=== PATIENT | female | born 1980 | race Caucasian/White ===

== ENCOUNTER → 2016-06-29 | Outpatient (REF) | payer OTHER ==
[2016-06-29 13:01] LABS: MEAN CORPUSCULAR HEMOGLOBIN 31.6 pg (27.0-33.0); MEAN CORPUSCULAR HGB CONC 33.4 g/dl (32.0-36.5); MEAN CORPUSCULAR VOLUME 94.5 fl (80.0-96.0); RED CELL DISTRIBUTION WIDTH 12.4 % (11.5-14.5); WHITE BLOOD COUNT 9.2 K/mm3 (4.0-10.0)
[2016-06-29 13:07] LABS: ALBUMIN/GLOBULIN RATIO 1.05 (1.00-1.93); ALKALINE PHOSPHATASE 84 U/L (45-117); ALT/SGPT 33 U/L (12-78); ANION GAP 8 MEQ/L (8-16); AST/SGOT 15 U/L (15-37); BILIRUBIN,TOTAL 0.2 MG/DL (0.2-1.0); BLOOD UREA NITROGEN 14 MG/DL (7-18); CARBON DIOXIDE LEVEL 29 MEQ/L (21-32); CHLORIDE LEVEL 103 MEQ/L (98-107); CREATININE FOR GFR 0.78 MG/DL (0.55-1.02); GLOMERULAR FILTRATION RATE > 60.0 (>60); GLUCOSE, FASTING 102 MG/DL (70-105); POTASSIUM SERUM 4.2 MEQ/L (3.5-5.1); SODIUM LEVEL 140 MEQ/L (136-145); TOTAL PROTEIN 7.8 GM/DL (6.4-8.2)
== END ==
LOC: M SFHCADAM 08:15
PROVIDERS: ATTEND Physician Assistant
DX: K52.9 Noninfective gastroenteritis and colitis, unspecified (principal); K92.1 Melena; R35.0 Frequency of micturition

== ENCOUNTER 2016-07-21 11:33 | Emergency (ER) | payer OTHER ==
[~2016-07-21] VITALS: Ht 154.9 cm; Wt 98.9 kg
[2016-07-21] MEDS ORDERED: BUPR50TA (11:44)
[2016-07-21] MEDS ORDERED: HYDR25TA6 (11:44)
--- NOTE | 2016-07-21 12:36 | REP ---
Clinical: Trauma. Technique: AP, lateral, bilateral oblique views of the left ankle. Findings: Diffuse soft tissue swelling is appreciated. No acute fracture dislocation. Joint spaces and ankle mortise are intact. Impression: Diffuse swelling. No acute fracture or dislocation. Signed by Marco Frazier MD 07/21/2016 12:28 P
[2016-07-21 12:47] VITALS: BP 152/98
[2016-07-21] MEDS ORDERED: NAPR500T PO (12:47)
== END 2016-07-21 12:51 | disposition home or self-care (01) ==
LOC: M ED 12:03
DX: M25.572 Pain in left ankle and joints of left foot (principal); I10 Essential (primary) hypertension; E66.8 Other obesity; Z79.899 Other long term (current) drug therapy; Z88.8 Allergy status to other drugs, medicaments and biological substances; Z91.018 Allergy to other foods

== ENCOUNTER → 2016-08-22 | Outpatient (REF) | payer OTHER ==
[~2016-08-22] MED LIST: BUPR50TA; HYDR25TA6; NAPR500T PO
== END ==
LOC: M LAB REF 12:02
PROVIDERS: ATTEND Physician Assistant Medical
DX: N30.01 Acute cystitis with hematuria (principal)

== ENCOUNTER → 2016-09-05 | Outpatient (REF) | payer OTHER ==
[~2016-09-05] MED LIST changes: +AMOX-CLAV; +CYCL10TA PO; +IBUP-1022 PO; +PRED20TA
== END ==
LOC: M LAB REF 12:10
PROVIDERS: ATTEND Physician Assistant Medical
DX: R30.0 Dysuria (principal)

== ENCOUNTER → 2016-10-23 | Outpatient (REF) | payer OTHER | LOC: M LAB REF 12:13 | PROVIDERS: ATTEND Physician Assistant Medical | DX: N30.01 Acute cystitis with hematuria (principal) ==

== ENCOUNTER 2016-12-17 12:18 | Emergency (ER) | payer OTHER ==
[~2016-12-17] VITALS: Ht 154.9 cm; Wt 98.6 kg
[~2016-12-17 12:18] MED LIST changes: -AMOX-CLAV; -CYCL10TA PO; -IBUP-1022 PO; -PRED20TA
[2016-12-17 12:20] VITALS: BP 152/85
[2016-12-17] MEDS ORDERED: PRED20TA (12:45)
[2016-12-17] MEDS ORDERED: AMOX-CLAV (12:45)
[2016-12-17] MEDS ORDERED: CYCL10TA PO (13:04)
[2016-12-17] MEDS ORDERED: IBUP-1022 PO (13:04)
== END 2016-12-17 13:12 | disposition home or self-care (01) ==
LOC: M ED 12:18
DX: M54.31 Sciatica, right side (principal)

== ENCOUNTER → 2017-10-21 | Outpatient (CLI) | payer OTHER | LOC: M WHC 08:34 | DX: N92.1 Excessive and frequent menstruation with irregular cycle (principal) ==

== ENCOUNTER → 2017-10-21 | Outpatient (REF) | payer OTHER ==
[2017-10-21 13:00] LABS: TOTAL 25(OH) VITAMIN D 35.6 NG/ML (30.0-100.0)
[2017-10-21 13:01] LABS: ALBUMIN 3.9 GM/DL (3.2-5.2); ALBUMIN/GLOBULIN RATIO 0.95 (1.00-1.93); ALKALINE PHOSPHATASE 86 U/L (45-117); ALT/SGPT 34 U/L (12-78); ANION GAP 10 MEQ/L (8-16); AST/SGOT 19 U/L (7-37); BILIRUBIN,TOTAL 0.6 MG/DL (0.2-1.0); BLOOD UREA NITROGEN 14 MG/DL (7-18); CALCIUM LEVEL 9.3 MG/DL (8.5-10.1); CARBON DIOXIDE LEVEL 28 MEQ/L (21-32); CHLORIDE LEVEL 102 MEQ/L (98-107); CREATININE FOR GFR 0.74 MG/DL (0.55-1.30); FREE T4 0.97 NG/DL (0.76-1.46); GLOMERULAR FILTRATION RATE > 60.0 (>60); GLUCOSE, FASTING 94 MG/DL (70-100); SODIUM LEVEL 140 MEQ/L (136-145)
[2017-10-21 13:09] LABS: HEMATOCRIT 38.1 % (36.0-47.0); HEMOGLOBIN 13.2 g/dl (12.0-15.5); MEAN CORPUSCULAR HEMOGLOBIN 30.7 pg (27.0-33.0); MEAN CORPUSCULAR HGB CONC 34.6 g/dl (32.0-36.5); MEAN CORPUSCULAR VOLUME 88.6 fl (80.0-96.0); PLATELET COUNT, AUTOMATED 294 10^3/uL (150-450); RED CELL DISTRIBUTION WIDTH 12.4 % (11.5-14.5); WHITE BLOOD COUNT 6.7 10^3/uL (4.0-10.0)
== END ==
LOC: M SFHCADAM 10:06
DX: I10 Essential (primary) hypertension (principal); N92.1 Excessive and frequent menstruation with irregular cycle; E55.9 Vitamin D deficiency, unspecified
CPT/HCPCS: 84443

== ENCOUNTER 2018-08-17 08:25 | Emergency (ER) | payer OTHER ==
[~2018-08-17] VITALS: Ht 154.9 cm; Wt 96.8 kg
[~2018-08-17 08:25] MED LIST changes: +AMOX-CLAV; +CYCL10TA PO; +IBUP-1022 PO; +NAPR-837 PO; -NAPR500T PO; +PRED20TA
[2018-08-17] MEDS ORDERED: KETOROLAC 30 MG/ML VIAL (J1885) IV ONE (10:15)
[2018-08-17] MEDS ORDERED: diazePAM 5 MG TAB PO ONE (10:15)
[2018-08-17] MEDS ORDERED: KETO10TAB PO (11:05)
[2018-08-17] MEDS ORDERED: CYCL10TA PO (11:06)
[2018-08-17] MEDS ORDERED: VALI5TAB PO (11:06)
[2018-08-17 11:12] VITALS: BP 142/79
--- NOTE | 2018-08-17 13:01 | REP ---
CT LUMBAR SPINE: Axial images of the lumbar spine performed with sagittal reconstruction images. There is no compression fracture. Vertebral bodies are normal in height with normal lumbar lordosis. There is chronic retrolisthesis of L5 on S1, 3 mm, unchanged since prior plain film study 09/15/2015. There is mild spurring of L4 and L5. There is moderate disc space narrowing with subchondral sclerosis and vacuum phenomenon at L5-S1. There is a chronically unfused right transverse process of L1. There are mild degenerative changes at the posterior facets of L2-3. There is a more moderate degree of degenerative change at the posterior facets of L3-4, L4-5 and L5-S1 with more significant spurring and subchondral sclerosis. IMPRESSION: Degenerative changes most significantly at L5-S1 level. No evidence of acute fracture or dislocation. Electronically Signed by Skip Sutton MD 08/17/2018 04:33 P
== END 2018-08-17 11:17 | disposition home or self-care (01) ==
LOC: M ED 08:25
DX: M54.5 Low back pain (principal); W18.40XA Slipping, tripping and stumbling without falling, unspecified, initial encounter; Y92.9 Unspecified place or not applicable; Y93.9 Activity, unspecified; I10 Essential (primary) hypertension; F32.89 Other specified depressive episodes; Z88.8 Allergy status to other drugs, medicaments and biological substances; Z91.018 Allergy to other foods
CPT/HCPCS: 72131; 80047; 81001; 84702; 96374; 99284; J1885

== ENCOUNTER → 2018-12-01 | Outpatient (REF) | payer OTHER ==
[~2018-12-01] MED LIST changes: +CALC600T5 PO; +CLAR10CA3 PO; +CRAN400C PO; +CVS1CAP2 PO; +D200CAP2 PO; +FLUO10CA15 PO; +GABA-843 PO; +HYDR25TAB PO; +KETO10TAB PO; +MULT1TAB42 PO; +POTA2TAB2 PO; +VALI5TAB PO
[2018-12-01 19:20] LABS: BASO # 0.1 10^3/uL (0.0-0.2); EOS # 0.3 10^3/uL (0.0-0.5); EOS % 2.4 % (0.0-3.0); HEMATOCRIT 41.4 % (36.0-47.0); HEMOGLOBIN 13.6 g/dl (12.0-15.5); LYMPH # 2.9 10^3/uL (1.5-5.0); LYMPH % 25.6 % (24.0-44.0); MEAN CORPUSCULAR HEMOGLOBIN 31.6 pg (27.0-33.0); MEAN CORPUSCULAR HGB CONC 32.9 g/dl (32.0-36.5); MEAN CORPUSCULAR VOLUME 96.1 fl (80.0-96.0); MONO # 0.7 10^3/uL (0.0-0.8); MONO % 6.6 % (0.0-5.0); NEUTROPHILS # 7.1 10^3/uL (1.5-8.5); PLATELET COUNT, AUTOMATED 320 10^3/uL (150-450); RED BLOOD COUNT 4.31 10^6/uL (4.00-5.40); WHITE BLOOD COUNT 11.2 10^3/uL (4.0-10.0)
[2018-12-01 19:31] LABS: ALBUMIN 3.9 GM/DL (3.2-5.2); ALT/SGPT 27 U/L (12-78); BILIRUBIN,TOTAL 0.3 MG/DL (0.2-1.0); BLOOD UREA NITROGEN 14 MG/DL (7-18); CALCIUM LEVEL 9.5 MG/DL (8.5-10.1); CARBON DIOXIDE LEVEL 31 MEQ/L (21-32); CHLORIDE LEVEL 103 MEQ/L (98-107); CREATININE FOR GFR 0.88 MG/DL (0.55-1.30); GLOMERULAR FILTRATION RATE > 60.0 (>58); GLUCOSE, FASTING 86 MG/DL (70-100); POTASSIUM SERUM 4.4 MEQ/L (3.5-5.1); SODIUM LEVEL 141 MEQ/L (136-145); TOTAL PROTEIN 8.1 GM/DL (6.4-8.2)
[2018-12-01 19:53] LABS: ERYTHROCYTE SEDIMENTATION RATE 16 mm/hr (0-20)
[2018-12-04 00:09] LABS: ANA (HEP2) Negative (.)
== END ==
LOC: M SFHCADAM 15:22
PROVIDERS: ATTEND Physician Assistant Medical
DX: R22.2 Localized swelling, mass and lump, trunk (principal); R22.42 Localized swelling, mass and lump, left lower limb; R22.41 Localized swelling, mass and lump, right lower limb; R22.43 Localized swelling, mass and lump, lower limb, bilateral

== ENCOUNTER → 2019-01-02 | Outpatient (CLI) | payer OTHER ==
[~2019-01-02] VITALS: Ht 156.2 cm; Wt 93.4 kg
[~2019-01-02] MED LIST changes: +BACITRACIN PWD 50,000 UNITS VIAL As Ordered ONE; +BUPIVACAINE HCL 0.25% 10 ML VIAL As Ordered ONE; +BUPIVACAINE LIPOSOME/PF 1.3% 20ML VIAL (13.3MG/ML)(EXPAREL)(C9290 PER1MG) As Ordered ONE; +BUPIVACAINE/EPIN 0.5% 30 ML VIAL As Ordered ONE; +CelecoXIB 400 MG CAP PO ONE; +EPINEPHrine INJ 1 MG/ML 1ML AMP As Ordered ONE; -FLUO10CA15 PO; +FLUO10CA8 PO; +GABAPENTIN 300 MG CAP PO ONE; +LIDOCAINE 2% INJ 100 MG/5 ML SDV (FOR ANES.) As Ordered ONE; +LR 1,000 ML IV ONE; +MIDAZOLAM INJ 2 MG/2 ML VIAL (J2250) As Ordered ONE; +PERCOCET 5MG/325MG TAB PO ONE; +PROPOFOL 200 MG/20 ML VIAL As Ordered ONE; +ROCURONIUM BROMIDE 50 MG/5 ML VIAL As Ordered ONE; +THROMBIN SOLN 20,000 UNITS KIT As Ordered ONE; +TRANEXAMIC ACID 100 MG/ML 10ML VIAL As Ordered ONE; +fentaNYL 250 MCG/5 ML INJECTION (J3010) As Ordered ONE
[2019-01-02 08:06] VITALS: BP 168/89
--- NOTE | 2019-01-02 20:57 | RO ---
DATE OF PROPOSED PROCEDURE: 01/02/2019 I met with Ms. Lemus in the preoperative holding area, talked to her about her right leg symptoms, and in fact, the patient indicates that her leg symptoms have improved and actually her symptoms overall are not nearly as bad as they were when she had been booked in September for this procedure. She does still have some residual back pain, occasionally gets some right buttock pain. I reviewed her MRI which reflected a central to right paracentral disc bulge. I talked with the patient about her symptoms currently and whether she could live it, and she is thinking that maybe she could live with her symptoms. For this reason, I think it is reasonable to cancel her current proposed operative procedure, reassess her in the office in 2 weeks. Consider additional imaging at this stage. Her previous MRI was September 03. There may be some changes since then given the improvement in the symptoms overall. The patient wants to proceed in that fashion. We cancelled the surgery today.
== END ==
LOC: M SDC 07:35 → M LAB 07:35 → EDSTATUS 10:30
PROVIDERS: ATTEND Orthopaedic Surgery
DX: M51.26 Other intervertebral disc displacement, lumbar region (principal); Z53.29 Procedure and treatment not carried out because of patient's decision for other reasons

== ENCOUNTER → 2020-05-23 | Outpatient (CLI) | payer OTHER ==
[~2020-05-23] MED LIST changes: -BACITRACIN PWD 50,000 UNITS VIAL As Ordered ONE; -BUPIVACAINE HCL 0.25% 10 ML VIAL As Ordered ONE; -BUPIVACAINE LIPOSOME/PF 1.3% 20ML VIAL (13.3MG/ML)(EXPAREL)(C9290 PER1MG) As Ordered ONE; -BUPIVACAINE/EPIN 0.5% 30 ML VIAL As Ordered ONE; +BUPR-69; -BUPR50TA; -CALC600T5 PO; +CALC600T61 PO; +CYCL-707 PO; -CYCL10TA PO; -CelecoXIB 400 MG CAP PO ONE; -EPINEPHrine INJ 1 MG/ML 1ML AMP As Ordered ONE; +FLUO10CA16 PO; -FLUO10CA8 PO; +GABA-282 PO; -GABA-843 PO; -GABAPENTIN 300 MG CAP PO ONE; +HYDR-3490 PO; -HYDR25TAB PO; -LIDOCAINE 2% INJ 100 MG/5 ML SDV (FOR ANES.) As Ordered ONE; -LR 1,000 ML IV ONE; -MIDAZOLAM INJ 2 MG/2 ML VIAL (J2250) As Ordered ONE; -PERCOCET 5MG/325MG TAB PO ONE; -PROPOFOL 200 MG/20 ML VIAL As Ordered ONE; -ROCURONIUM BROMIDE 50 MG/5 ML VIAL As Ordered ONE; -THROMBIN SOLN 20,000 UNITS KIT As Ordered ONE; -TRANEXAMIC ACID 100 MG/ML 10ML VIAL As Ordered ONE; -fentaNYL 250 MCG/5 ML INJECTION (J3010) As Ordered ONE
--- NOTE | 2020-05-23 17:07 | REP ---
INDICATION: LIPOMA OF LEFT LOWER EXT, LATERAL THIGH. COMPARISON: None. TECHNIQUE: Real-time sonographic evaluation of left thigh soft tissues performed. FINDINGS: In the lateral left thigh a subtle oval hyperechoic nodule is seen with similar echogenicity to adjacent fat. It measures 2.1 x 1.2 x 1.7 cm. No other cystic or solid nodule is seen. IMPRESSION: Hyperechoic nodule lateral left thigh may represent a lipoma with maximum diameter of 2.1 cm. However clinical correlation is necessary, as ultrasound is nonspecific for tissue type. If the nodule is clinically enlarging or is painful, recommend MRI for further evaluation. <Electronically signed by Skip Sutton > 05/23/20 [id number]
== END ==
LOC: M RAD 15:49
PROVIDERS: ATTEND Physician Assistant
DX: D17.24 Benign lipomatous neoplasm of skin and subcutaneous tissue of left leg (principal)

== ENCOUNTER → 2020-07-20 | Outpatient (CLI) | payer OTHER ==
--- NOTE | 2020-07-20 17:45 | REP ---
INDICATION: LOCALIZED SWELLING, MASS AND LUMP. COMPARISON: Ultrasound 05/23/2020. TECHNIQUE: Multiple sequences obtained in the axial, coronal and sagittal planes. FINDINGS: In the lateral left thigh soft tissues there is abundant subcutaneous fat between the skin and the underlying musculature. The nodule seen on the recent ultrasound is consistent with a non encapsulated lipoma. No abnormal signal is seen in the muscles of the thigh. The left femur demonstrates normal signal with no bone marrow edema or evidence of focal bone lesion. There is no hip joint effusion. No other abnormalities are seen. IMPRESSION: The nodule on the recent ultrasound appears to correspond to a non encapsulated lipoma. No suspicious soft tissue or osseous abnormality. <Electronically signed by Skip Sutton > 07/20/20 [id number]
== END ==
LOC: M RAD 15:54
PROVIDERS: ATTEND Physician Assistant
DX: R22.9 Localized swelling, mass and lump, unspecified (principal)

== ENCOUNTER → 2020-12-05 | Outpatient (REF) | payer OTHER | LOC: M SFHCADAM 09:36 | PROVIDERS: ATTEND Family Medicine | DX: R30.0 Dysuria (principal); R10.30 Lower abdominal pain, unspecified ==

== ENCOUNTER → 2020-12-06 | Outpatient (REF) | payer OTHER | LOC: M SFHCADAM 09:31 | PROVIDERS: ATTEND Family Medicine | DX: R30.0 Dysuria (principal); R10.30 Lower abdominal pain, unspecified ==

== ENCOUNTER → 2021-06-15 | Outpatient (REF) | payer OTHER ==
[~2021-06-15] MED LIST changes: -FLUO10CA16 PO; +FLUO10CA18 PO
== END ==
LOC: M SFHCADAM 13:40
PROVIDERS: ATTEND Physician Assistant
DX: Z12.4 Encounter for screening for malignant neoplasm of cervix (principal)

== ENCOUNTER → 2022-02-05 | Outpatient (REF) | payer OTHER ==
[2022-02-05 14:59] LABS: HEMATOCRIT 44.5 % (36.0-47.0); HEMOGLOBIN 14.3 g/dl (12.0-15.5); MEAN CORPUSCULAR HGB CONC 32.1 g/dl (32.0-36.5); MEAN CORPUSCULAR VOLUME 96.3 fl (80.0-96.0); PLATELET COUNT, AUTOMATED 303 10^3/uL (150-450); RED BLOOD COUNT 4.62 10^6/uL (4.00-5.40); WHITE BLOOD COUNT 10.4 10^3/uL (4.0-10.0)
[2022-02-05 15:14] LABS: THYROID STIMULATING HORMONE 3.038 uIU/ML (0.55-4.78)
[2022-02-05 15:15] LABS: FREE T4 1.02 NG/DL (0.89-1.76)
[2022-02-05 15:18] LABS: ALBUMIN 4.1 G/DL (3.2-5.2); ALKALINE PHOSPHATASE 70 U/L (46-116); ALT/SGPT 20 U/L (7.0-40); AST/SGOT 16 U/L (<34); BILIRUBIN,TOTAL 0.5 MG/DL (0.3-1.2); BLOOD UREA NITROGEN 18 MG/DL (9-23); CALCIUM LEVEL 9.5 MG/DL (8.5-10.1); CARBON DIOXIDE LEVEL 27 MMOL/L (20-31); CHLORIDE LEVEL 106 MMOL/L (98-107); CHOLESTEROL LEVEL 176 MG/DL (<200); CHOLESTEROL RISK RATIO 3.09 (<5); CREATININE FOR GFR 0.68 MG/DL (0.55-1.30); GLOMERULAR FILTRATION RATE > 60.0 (>58); GLUCOSE, FASTING 113 MG/DL (60-100); HDL CHOLESTEROL 56.8 MG/DL (>40); LDL CHOLESTEROL 105.2 MG/DL (<100); NON-HDL-C 119 MG/DL; POTASSIUM SERUM 4.9 MMOL/L (3.5-5.1); SODIUM LEVEL 140 MMOL/L (136-145); TOTAL PROTEIN 7.4 G/DL (5.7-8.2); TRIGLYCERIDES LEVEL 70 MG/DL (<150)
[2022-02-05 16:42] LABS: HEMOGLOBIN A1c 4.9 % (4.0-6.0)
== END ==
LOC: M SFHCADAM 07:35
PROVIDERS: ATTEND Physician Assistant
DX: E66.9 Obesity, unspecified (principal); N92.0 Excessive and frequent menstruation with regular cycle; N64.4 Mastodynia; F32.9 Major depressive disorder, single episode, unspecified; I10 Essential (primary) hypertension; Z12.4 Encounter for screening for malignant neoplasm of cervix; Z13.220 Encounter for screening for lipoid disorders; Z13.1 Encounter for screening for diabetes mellitus

== ENCOUNTER → 2022-08-23 | Outpatient (CLI) | payer OTHER | LOC: M WHC 10:22 | PROVIDERS: ATTEND Physician Assistant | DX: N60.19 Diffuse cystic mastopathy of unspecified breast (principal) | CPT/HCPCS: 76641; 77066; G0279 ==

== ENCOUNTER → 2024-09-28 | Outpatient (REF) | payer OTHER ==
[~2024-09-28] MED LIST changes: -CRAN400C PO; +CRANBERRY400 MG PO; +FLUO-290 PO; -FLUO10CA18 PO; +GABA-1172 PO; -GABA-282 PO
[2024-09-28 13:58] LABS: PLATELET COUNT, AUTOMATED 298 10^3/uL (150-450)
[2024-09-28 14:06] LABS: ALT/SGPT 24 U/L (7.0-40); AST/SGOT 19 U/L (<34); CALCIUM LEVEL 9.5 MG/DL (8.5-10.1); CARBON DIOXIDE LEVEL 27 MMOL/L (20-31); CHLORIDE LEVEL 102 MMOL/L (98-107); CHOLESTEROL LEVEL 178 MG/DL (<200); CHOLESTEROL RISK RATIO 3.35 (<5); CREATININE FOR GFR 0.72 MG/DL (0.55-1.30); GLOMERULAR FILTRATION RATE > 90.0 (>58); LDL CHOLESTEROL 93.9 MG/DL (<100); NON-HDL-C 124.9 MG/DL; POTASSIUM SERUM 4.7 MMOL/L (3.5-5.1); SODIUM LEVEL 141 MMOL/L (136-145); TRIGLYCERIDES LEVEL 155 MG/DL (<150)
[2024-09-28 14:27] LABS: ESTIMATED AVERAGE GLUCOSE 111.0 MG/DL (60-110)
== END ==
LOC: M SFHCADAM 08:43
PROVIDERS: ATTEND Physician Assistant
DX: I10 Essential (primary) hypertension (principal); G47.33 Obstructive sleep apnea (adult) (pediatric); E66.01 Morbid (severe) obesity due to excess calories; Z68.35 Body mass index [BMI] 35.0-35.9, adult; E66.812 Obesity, class 2; Z12.31 Encounter for screening mammogram for malignant neoplasm of breast; Z13.1 Encounter for screening for diabetes mellitus; Z13.220 Encounter for screening for lipoid disorders; Z28.21 Immunization not carried out because of patient refusal

== ENCOUNTER → 2024-10-08 | Outpatient (CLI) | payer OTHER ==
[2024-10-08 12:06] LABS: FREE T4 1.08 NG/DL (0.89-1.76)
== END ==
LOC: M LAB 10:11
PROVIDERS: ATTEND Physician Assistant
DX: I10 Essential (primary) hypertension (principal)

== ENCOUNTER → 2024-10-08 | Outpatient (REF) | payer OTHER | LOC: M SFHCADAM 09:12 | PROVIDERS: ATTEND Physician Assistant | DX: Z53.9 Procedure and treatment not carried out, unspecified reason (principal) ==

== ENCOUNTER → 2024-11-10 | Outpatient (CLI) | payer OTHER ==
[~2024-11-10] MED LIST changes: -IBUP-1022 PO; +IBUP600T42 PO
== END ==
LOC: M PLAIMG 10:00
PROVIDERS: ATTEND Physician Assistant
DX: I10 Essential (primary) hypertension (principal)

== ENCOUNTER → 2024-11-10 | Outpatient (CLI) | payer OTHER | LOC: M WHC 07:41 | PROVIDERS: ATTEND Physician Assistant | DX: N63.32 Unspecified lump in axillary tail of the left breast (principal) | CPT/HCPCS: 76642; 77066; G0279 ==